=== PATIENT | male | born 2000 | race Caucasian/White ===

== ENCOUNTER 2021-08-07 00:33 | Emergency (ER) | payer BC ==
[2021-08-07] MEDS ORDERED: Ibuprofen 600 MG Tab PO ONE (00:46)
[2021-08-07] MEDS ORDERED: Cephalexin 500 MG Cap PO ONE (00:46)
== END 2021-08-07 00:58 | disposition home or self-care (01) ==
LOC: MW.ED 00:33
DX: K08.89 Other specified disorders of teeth and supporting structures (principal)
CPT/HCPCS: 99282; A9270; 99283

== ENCOUNTER 2022-12-25 11:25 | Emergency (ER) | payer SELFPAY | END 2022-12-25 14:54 | disposition home or self-care (01) | LOC: MW.ED 11:25 | DX: L03.213 Periorbital cellulitis (principal); Z72.0 Tobacco use | CPT/HCPCS: 99282; 99283 ==